=== PATIENT | male | born 2000 | race Caucasian/White ===

== ENCOUNTER 2021-01-26 15:52 | Outpatient (CLI) | payer OTHER, SELFPAY | END 2021-01-26 15:53 | disposition home or self-care (01) | LOC: ANHCOVIDVC 15:52 | PROVIDERS: PCP Pediatrics | DX: Z23 Encounter for immunization (principal) | CPT/HCPCS: 0001A; 91300 ==

== ENCOUNTER 2021-02-16 15:55 | Outpatient (CLI) | payer OTHER, SELFPAY | END 2021-02-16 15:56 | disposition home or self-care (01) | LOC: ANHCOVIDVC 15:55 | PROVIDERS: PCP Pediatrics | DX: Z23 Encounter for immunization (principal) | CPT/HCPCS: 0002A; 91300 ==

== ENCOUNTER → 2021-06-16 13:16 | Outpatient (CLI) | payer OTHER, SELFPAY ==
--- NOTE | ~2021-06-16 | XR_ITS ---
EXAMINATION: XR chest 2V EXAM DATE: 06/16/2021 14:47 INDICATION: Screening for tuberculosis. TECHNIQUE: Frontal and lateral projections of the chest obtained and reviewed. There is no prior josue dy for comparison. FINDINGS: The lungs are clear. There are no pleural effusions. The cardiomediastinal silhouette is within normal limits. There is no pneumothorax suspected. The bones and soft tissues are unremarkab le. IMPRESSION: Normal chest x-ray exam. Reviewed, dictated and finalized at location B. IMPRESSION: Normal chest x-ray exam.
== END ==
PROVIDERS: PCP Pediatrics; Visit Provider Pediatrics
DX: Z11.1 Encounter for screening for respiratory tuberculosis (principal)
CPT/HCPCS: 71046

== ENCOUNTER 2025-03-02 12:54 | Outpatient (CLI) | payer OTHER, SELFPAY ==
--- NOTE | ~2025-03-02 | CT_ITS ---
CT of the Abdomen and Pelvis: Indication: Bladder diverticulum Technique: 2.5 mm axial scans were obtained through the abdomen and pelvis prior to and following in travenous administration of 130 cc of Omnipaque 350. Dose reduction technique was used on this scan b y utilizing automated exposure control and iterative reconstruction technique. The dose-length produc t (DLP) was 1520.01 mGy-cm. Findings: Scans through the lung bases are unremarkable. The liver, spleen, pancreas, gallbladder, adrenals and kidneys are within normal limits. No evidence of aortic aneurysm. No lymphadenopathy. No bowel obstruction or bowel wall thickening. There is no evidence to suggest acute appendicitis. Images through the pelvis were performed. Urinary bladder unremarkable. No diverticulum or mass seen. No pelvic mass evident. No ascites. Impression: Unremarkable exam. In particular, no bladder diverticulum seen. Reviewed, dictated and finalized at [facility]. Impression: Unremarkable exam. In particular, no bladder diverticulum seen.
--- NOTE | ~2025-03-02 | XR_ITS ---
XR abdomen/kub 1V Ordering provider: Magdy Delgadillo MD History: . bladder diverticulum . Comparison: None. FINDINGS: BOWEL: Fecal material is loaded in the colon. Nonobstructive bowel gas pattern. ORGANOMEGALY: None. SIGNIFICANT PATHOLOGIC CALCIFICATIONS: Faint calcification is seen in the left kidney. Calcification is projected over the urethra which may be a tiny stone , outside the ureter or artifactual. Clinical correlation advised. OTHER: No free air is seen under the diaphragm. IMPRESSION: NO ACUTE ABDOMINAL FINDINGS. Calcification is possible in the left kidney. Calcification seen in the area of the urethra. Further evaluation advised. Reviewed, dictated and finalized at location A.
== END 2025-03-02 12:55 | disposition home or self-care (01) ==
LOC: MICIMG 12:56
PROVIDERS: PCP Urology; Visit Provider Urology
DX: N32.3 Diverticulum of bladder (principal); N36.8 Other specified disorders of urethra
CPT/HCPCS: 74018; 74178; Q9967